=== PATIENT | female | born 1985 | race Hispanic/Latino ===

== ENCOUNTER 2018-06-25 11:50 | Emergency (ER) | payer MEDICAID ==
[2018-06-25 12:09] VITALS: O2SAT 100; BMI 20.3
--- NOTE | 2018-06-25 12:33 | ED PDOC ---
Arrival/HPI - General Chief Complaint: Trauma Time Seen by Provider: 06/25/18 12:29 Historian: Patient - History of Present Illness Narrative History of Present Illness (Text): 06/25/18 12:30 32 y/o female, no significant pmh, allergic to nsaids?, c/o rt. thigh pain x 1- 2 months. Pt. stated that she accidentally hit against the sink about 1-2 months ago, been walking and standing on the rt. thigh, here because the bruising color has not completely resolved by much better, no other bruising skin discolor on the body, no hematuria, no fever or chills, no numbness or tingling, no other medical or psychological complaints. Past Medical History - Provider Review Nursing Documentation Reviewed: Yes - Cardiac Hx Cardiac Disorders: No - Pulmonary Hx Respiratory Disorders: No - Neurological Hx Neurological Disorder: No - HEENT Hx HEENT Disorder: No - Renal Hx Renal Disorder: No - Endocrine/Metabolic Hx Endocrine Disorders: Yes Other/Comment: [place] syndrom - Hematological/Oncological Hx Blood Disorders: No - Integumentary Hx Dermatological Disorder: No - Musculoskeletal/Rheumatological Hx Musculoskeletal Disorders: No - Gastrointestinal Hx Gastrointestinal Disorders: No - Genitourinary/Gynecological Hx Genitourinary Disorders: No - Psychiatric Hx Psychophysiologic Disorder: No Hx Substance Use: No Family/Social History - Physician Review Nursing Documentation Reviewed: Yes Family/Social History: Unknown Family HX Smoking Status: Current Some Days Smoker Hx Alcohol Use: Yes Frequency of alcohol use: Few days per week Hx Substance Use: No Allergies/Home Meds Allergies/Adverse Reactions: Allergies NSAIDS (Non-Steroidal Anti-Inflamma Allergy (Verified 06/25/18 12:10) ANGIOEDEMA Home Medications: Home Meds Medication Instructions Recorded Confirmed No Known Home Med 06/25/18 06/25/18 Review of Systems - Review of Systems Constitutional: absent: Fatigue, Weight Change, Fevers Eyes: absent: Vision Changes ENT: absent: Hearing Changes Respiratory: absent: SOB, Cough Cardiovascular: absent: Chest Pain Gastrointestinal: absent: Abdominal Pain, Nausea, Vomiting Musculoskeletal: Myalgias. absent: Arthralgias, Back Pain, Neck Pain, Joint Swelling Skin: absent: Rash, Pruritis Neurological: absent: Headache, Dizziness Psychiatric: absent: Anxiety, Depression Physical Exam Vital Signs Reviewed: Yes Vital Signs Temp Pulse Resp BP Pulse Ox 06/25/18 12:03 98.5 F 97 H 16 122/79 100 Temperature: Afebrile Blood Pressure: Normal Pulse: Regular Respiratory Rate: Normal Appearance: Positive for: Well-Appearing, Non-Toxic, Comfortable Pain Distress: Mild Mental Status: Positive for: Alert and Oriented X 3 - Systems Exam Head: Present: Atraumatic, Normocephalic Pupils: Present: PERRL Extroacular Muscles: Present: EOMI Conjunctiva: Present: Normal Mouth: Present: Moist Mucous Membranes Neck: Present: Normal Range of Motion Respiratory/Chest: Present: Clear to Auscultation, Good Air Exchange. No: Respiratory Distress, Accessory Muscle Use Cardiovascular: Present: Regular Rate and Rhythm, Normal S1, S2. No: Murmurs Abdomen: No: Tenderness, Distention, Peritoneal Signs Back: Present: Normal Inspection Upper Extremity: Present: Normal Inspection. No: Cyanosis, Edema Lower Extremity: Present: Normal Inspection, NORMAL PULSES, Normal ROM, Capillary Refill < 2 s, Other (Rt. anterior mid thigh noted to have resolving ecchymosis approx. 4alo5wu diameter, no cellulitis or ulcer, no bony tenderness , no temperature difference grossly compared to LLE, +DPPT pulses, full sensation intact, capillary refill< 2 seconds, neurovascular intact. ). No: Edema, Erythema, Deformity, Temperature Abnormalties, Neurovascularly Intact Neurological: Present: GCS=15, CN II-XII Intact, Speech Normal, Motor Func Grossly Intact, Gait Normal, Memory Normal Skin: Present: Warm, Dry, Normal Color. No: Rashes Psychiatric: Present: Alert, Oriented x 3, Normal Insight, Normal Concentration Medical Decision Making ED Course and Treatment: 06/25/18 12:32 Differential: DVT vs. contussion vs. muscular injury -RLE Venuous doppler -Observe and reasses 06/25/18 13:52 -RLE Venuous doppler: as per preliminary report, no acute DVT -All result explained to the patient, advised to follow up with the pmd -Discharge home with education on follow up with your own pmd within 2 days, take tylenol for pain as needed, return to the ER for any new or worsening signs or symptoms. - RAD Interpretation Radiology Orders: 06/25/18 12:29 DUPLEX LOWER EXTRM VEIN RIGHT [US] Stat RLE Venuous doppler: as per preliminary report, no acute dvt Wafer Cutter: Radiologist - PA / SECURITY ORDERLY / Resident Statement / has reviewed & agrees with the documentation as recorded. Disposition/Present on Arrival - Present on Arrival Any Indicators Present on Arrival: No History of DVT/PE: No History of Uncontrolled Diabetes: No Urinary Catheter: No History of Decub. Ulcer: No History Surgical Site Infection Following: None - Disposition Have Diagnosis and Disposition been Completed?: Yes Diagnosis: Thigh pain Disposition: HOME/ ROUTINE Disposition Time: 13:54 Patient Plan: Discharge Condition: GOOD Additional Instructions: -Discharge home with education on follow up with your own pmd within 2 days, take tylenol for pain as needed, return to the ER for any new or worsening signs or symptoms. Referrals: Shabbir Leach DO [Staff Provider] - Follow up with primary [facility] [Outside] - Follow up with primary Forms: [employer] (Irish), WORK NOTE
[2018-06-25 14:08] VITALS: BP 125/80; PULSE 88; RESP 17
[2018-06-25 14:09] VITALS: TEMP 98.2
--- NOTE | 2018-06-25 22:16 | US ---
PROCEDURE: Right lower extremity venous US HISTORY: Leg pain and swelling. Evaluate for DVT. PHYSICIAN(S): Paras Eller M.D. TECHNIQUE: Duplex sonography and color-flow Doppler with graded compression were used to evaluate the deep venous system of the right lower extremity. FINDINGS: The visualized deep venous system of the right lower extremity is sonographically normal and compressible. Normal waveforms and augmentation are seen. There is no sonographic evidence for deep venous thrombosis in the visualized segments of the right lower extremity. IMPRESSION: 1. No sonographic evidence for deep venous thrombosis in the visualized segments of the right lower extremity.
== END 2018-06-25 14:08 | disposition home or self-care (01) ==
LOC: ED 11:50
DX: M79.651 Pain in right thigh (principal)